=== PATIENT | female | born 1950 | race Two or more races ===

== ENCOUNTER 2020-05-08 08:17 | Emergency (ER) | payer OTHER, MEDICAID ==
[~2020-05-08] VITALS: Ht 160 cm; Wt 71.7 kg
[2020-05-08 08:26] VITALS: BP 137/68
[2020-05-08 09:13] LABS: Urine Blood 3+ /uL (Negative); Urine Mucus FEW (None Seen); Urine Specific Gravity 1.011 (1.001-1.035); Urine WBC 76 /hpf (0 - 5)
[2020-05-08 09:14] LABS: Urine Bacteria FEW /hpf (None Seen)
[2020-05-08] MEDS ORDERED: PHENAZOPYRIDINE HCL 100 MG TAB PO ONE (09:30)
[2020-05-08] MEDS ORDERED: cefTRIAXone SOD 1,000 MG VL IM ONE (09:30)
[2020-05-08] MEDS ORDERED: LIDOCAINE 1% HCL (LOCAL ANESTH.) INJ 20ML MDV ONE (09:38)
[2020-05-08] MEDS ORDERED: LIDOCAINE 1% HCL (LOCAL ANESTH.) INJ 20ML MDV IJ ONE (10:00)
== END 2020-05-08 10:04 | disposition home or self-care (01) ==
LOC: ER 08:17
DX: N30.00 Acute cystitis without hematuria (principal); Z90.49 Acquired absence of other specified parts of digestive tract; Z90.710 Acquired absence of both cervix and uterus
CPT/HCPCS: 81001; 96372; 99283; J0696; J2001

== ENCOUNTER 2020-10-11 22:59 | Emergency (ER) | payer OTHER, MEDICAID ==
[~2020-10-11] VITALS: Ht 160 cm; Wt 66.2 kg
[2020-10-11 23:35] VITALS: BP 124/61
[2020-10-12 00:35] LABS: Urine Amorphous Crystal FEW /hpf (None Seen); Urine Bacteria NONE SEEN /hpf (None Seen); Urine Blood 3+ /uL (Negative); Urine Budding Yeast LOADED /hpf (None Seen); Urine Mucus FEW (None Seen); Urine Specific Gravity 1.018 (1.001-1.035); Urine WBC 877 /hpf (0 - 5); Urine WBC Clumps PRESENT /hpf (None Seen)
[2020-10-12] MEDS ORDERED: cefTRIAXone 1GM/50ML D5W 50 ML IV ONE (00:45)
[2020-10-12] MEDS ORDERED: SODIUM CHLORIDE 0.9% 1,000 ML IV ONE (00:45)
[2020-10-12] MEDS ORDERED: FLUCONAZOLE 100 MG TAB PO ONE (02:15)
== END 2020-10-12 03:22 | disposition home or self-care (01) ==
LOC: ER 22:59
DX: N39.0 Urinary tract infection, site not specified (principal); R82.4 Acetonuria; R31.9 Hematuria, unspecified; R80.9 Proteinuria, unspecified; Z90.49 Acquired absence of other specified parts of digestive tract; Z90.710 Acquired absence of both cervix and uterus
CPT/HCPCS: 81001; 93005; 96365; 99284; J0696; J7030

== ENCOUNTER 2021-06-01 05:32 | Emergency (ER) | payer OTHER, MEDICAID ==
[~2021-06-01] VITALS: Ht 157.5 cm; Wt 64.4 kg
[2021-06-01 06:38] VITALS: BP 148/73
[2021-06-01 09:01] LABS: Urine Bacteria FEW /hpf (None Seen); Urine Blood Negative /uL (Negative); Urine Specific Gravity 1.008 (1.001-1.035); Urine WBC 1 /hpf (0 - 5)
== END 2021-06-01 07:04 | disposition home or self-care (01) ==
LOC: ER 05:32
DX: T83.9XXA Unspecified complication of genitourinary prosthetic device, implant and graft, initial encounter (principal); Z90.49 Acquired absence of other specified parts of digestive tract; Z90.710 Acquired absence of both cervix and uterus
CPT/HCPCS: 81001

== ENCOUNTER 2022-02-16 04:05 | Emergency (ER) | payer OTHER, MEDICAID ==
[~2022-02-16] VITALS: Ht 160 cm; Wt 66.2 kg
[2022-02-16 05:37] LABS: Urine Bacteria NONE SEEN /hpf (None Seen); Urine Blood 3+ /uL (Negative); Urine WBC 555 /hpf (0 - 5); Urine WBC Clumps PRESENT /hpf (None Seen)
[2022-02-16 05:40] LABS: Urine Specific Gravity 1.017 (1.001-1.035)
[2022-02-16] MEDS ORDERED: SODIUM CHLORIDE 0.9% 1,000 ML IV ONE (07:00)
[2022-02-16] MEDS ORDERED: cefTRIAXone 1GM/50ML D5W 50 ML IV ONE (07:00)
[2022-02-16 07:49] VITALS: BP 112/49
[2022-02-16 07:50] LABS: Basophils # (auto) 0.1 10 ^3/uL (0-0.2); Eosinophils # (auto) 0 10 ^3/uL (0-0.8); Eosinophils % (auto) 0.1 % (0.0-7.0); Hematocrit 45.8 % (36.0-46.0); Hemoglobin 15.7 g/dL (12.2-16.2); Lymphocytes # (auto) 1.5 10 ^3/uL (0.4-5.4); Lymphocytes % (auto) 16.6 % (10.0-50.0); Mean Corpuscular Hemoglobin 30.7 pg (28.0-32.0); Mean Corpuscular Hgb Conc. 34.4 g/dL (32.0-36.0); Mean Corpuscular Volume 89.4 fL (80.0-100.0); Monocytes # (auto) 0.5 10 ^3/uL (0-1.3); Monocytes % (auto) 5.3 % (0.0-12.0); Neutrophils # (auto) 6.9 10 ^3/uL (1.6-8.6); Nucleated Red Blood Cells % 0.1 %; Red Blood Cells 5.12 10^6/uL (4.0-5.20)
[2022-02-16 08:19] LABS: Albumin 4.2 g/dL (3.4-5.0); Calcium 9.2 mg/dL (8.5-10.1)
[2022-02-16 08:24] LABS: BUN/Creatinine Ratio 14.8; Bilirubin, Total 0.7 mg/dL (0.2-1.0); Total Protein 8.4 g/dL (6.4-8.2)
[2022-02-16] MEDS ORDERED: NITR-87 PO (08:39)
== END 2022-02-16 08:59 | disposition home or self-care (01) ==
LOC: ER 04:05
DX: N39.0 Urinary tract infection, site not specified (principal); Z90.49 Acquired absence of other specified parts of digestive tract; Z90.710 Acquired absence of both cervix and uterus
CPT/HCPCS: 36415; 74176; 80053; 81001; 84484; 85025; 96365; 99284; J0696; J7030

== ENCOUNTER 2022-04-29 09:11 | Emergency (ER) | payer OTHER, MEDICAID ==
[~2022-04-29] VITALS: Ht 106.7 cm; Wt 63.4 kg
[~2022-04-29 09:11] MED LIST: NITR-87 PO
[2022-04-29 10:01] VITALS: BP 125/52
[2022-04-29 10:28] LABS: Basophils # (auto) 0 10 ^3/uL (0-0.2); Basophils % (auto) 0.3 % (0.0-2.0); Eosinophils # (auto) 0 10 ^3/uL (0-0.8); Eosinophils % (auto) 0.8 % (0.0-7.0); Lymphocytes # (auto) 1.2 10 ^3/uL (0.4-5.4); Lymphocytes % (auto) 24.7 % (10.0-50.0); Mean Corpuscular Hemoglobin 29.9 pg (28.0-32.0); Mean Corpuscular Hgb Conc. 33.4 g/dL (32.0-36.0); Mean Corpuscular Volume 89.5 fL (80.0-100.0); Monocytes # (auto) 0.3 10 ^3/uL (0-1.3); Monocytes % (auto) 6.8 % (0.0-12.0); Neutrophils # (auto) 3.3 10 ^3/uL (1.6-8.6); Neutrophils % (auto) 67.4 % (37.0-80.0); Nucleated Red Blood Cells % 0.1 %; Red Blood Cells 4.69 10^6/uL (4.0-5.20); Red Cell Distribution Width 13.1 % (11.8-14.3); White Blood Cell 4.9 10^3/uL (4.4-10.8)
[2022-04-29 10:59] LABS: Potassium 4.1 mmol/L (3.5-5.1)
[2022-04-29 11:09] LABS: Albumin 3.5 g/dL (3.4-5.0); BUN/Creatinine Ratio 17.3; Bilirubin, Total 0.3 mg/dL (0.2-1.0); Calcium 8.9 mg/dL (8.5-10.1); Total Protein 7.3 g/dL (6.4-8.2)
[2022-04-29] MEDS ORDERED: DICL1GEL83 EX (11:30)
== END 2022-04-29 12:25 | disposition home or self-care (01) ==
LOC: ER 09:11
DX: N64.4 Mastodynia (principal); R07.9 Chest pain, unspecified; Z90.49 Acquired absence of other specified parts of digestive tract; Z90.710 Acquired absence of both cervix and uterus
CPT/HCPCS: 36415; 71046; 80053; 83690; 84484; 85025

== ENCOUNTER 2024-04-20 21:38 | Emergency (ER) | payer OTHER ==
[~2024-04-20] VITALS: Ht 160 cm; Wt 61.3 kg
[~2024-04-20 21:38] MED LIST changes: +DICL1GEL83 EX
[2024-04-20 22:26] LABS: Urine Bacteria FEW /hpf (None Seen); Urine Blood 1+ /uL (Negative); Urine Clarity Clear (Clear); Urine Color Colorless (Yellow); Urine Protein, UAD Negative (Negative); Urine Specific Gravity 1.003 (1.001-1.035); Urine Urobilinogen Normal (Negative); Urine WBC 36 /hpf (0 - 5); Urine pH 6.5 (5.0-9.0)
[2024-04-21 00:39] VITALS: BP 145/66; PULSE 65; RESP 18; TEMP 98; O2SAT 95
[2024-04-21] MEDS ORDERED: NITR-87 PO (00:44)
== END 2024-04-21 00:51 | disposition home or self-care (01) ==
LOC: ER 21:38
DX: N39.0 Urinary tract infection, site not specified (principal); R30.0 Dysuria; Z98.890 Other specified postprocedural states; Z79.899 Other long term (current) drug therapy
CPT/HCPCS: 81001